=== PATIENT | male | born 1980 | race Caucasian/White ===

== ENCOUNTER 2016-11-24 14:56 | Emergency (ER) | payer BC, OTHER ==
[2016-11-24 15:26] VITALS: BP 107/59
--- NOTE | 2016-11-24 15:42 | UC ---
Skin Complaint HPI - HPI Summary HPI Summary: 36 year old male with complaints of tingling, burning red flushed face, ears and arms 15 minutes after taking niacin. He has been feeling "under the weather " with his depression. He is not taking any medication, does have a history of depression. He denies any thoughts of harming himself or others. Thought he would try an over the counter remedy to help with his depression so is trying niacin. He believes he took a 500 mg dose. He denies chest pain or difficulty breathing - History of Current Complaint Chief Complaint: UCAllergicReaction Time Seen by Provider: 11/24/16 15:19 Stated Complaint: RASH OR HIVES,ALLERGY Hx Obtained From: Patient Onset/Duration: Sudden Onset, Lasting Hours - 2, Still Present Timing: Constant Onset Severity: Mild Current Severity: Mild Location: Diffuse Character: Redness Aggravating: Nothing Alleviating: Nothing Associated Signs & Symptoms: Positive: Rash. Negative: Nausea, Vomiting, Numbness, Thirst, Diaphoresis, Weakness, Shivering, Difficulty Breathing, Fever , Chills, Cough, Wheezing, Throat Tightening, Lightheadedness, Drainage, Bruising, Tenderness, Red Streaks - Allergy/Home Medications Allergies/Adverse Reactions: Allergies Allergy/AdvReac Type Severity Reaction Status Date / Time Amoxicillin Allergy Mild Swelling Verified 11/24/16 15:20 Of Face,Lips,& Throat Home Medications: Home Medications NK [No Home Medications Reported] 11/24/16 [History Confirmed 11/24/16] Review of Systems Constitutional: Negative Skin: Rash - which is a burning, tingling sensation in the face and chest, and red or flushed skin. Eyes: Negative ENT: Negative Respiratory: Negative Cardiovascular: Negative Gastrointestinal: Negative Genitourinary: Negative Motor: Negative Neurovascular: Negative Musculoskeletal: Negative Neurological: Negative Psychological: Negative All Other Systems Reviewed And Are Negative: Yes PMH/Surg Hx/FS Hx/Imm Hx Previously Healthy: Yes Endocrine History Of: Denies: Diabetes, Thyroid Disease Cardiovascular History Of: Denies: Cardiac Disorders, Hypertension Respiratory History Of: Denies: COPD, Asthma GI/ History Of: Denies: Ulcer Psychological History Of: Reports: Depression - Surgical History Surgical History: None - Family History Known Family History: Negative: Hypertension, Diabetes - Social History Occupation: Employed Full-time Alcohol Use: Rare Substance Use Type: None Smoking Status (MU): Never Smoked Tobacco Physical Exam Triage Information Reviewed: Yes Appearance: No Pain Distress, Well-Nourished, Ill-Appearing - mildly Vital Signs: Initial Vital Signs Temp 97.6 F 11/24/16 15:21 Pulse 63 11/24/16 15:21 Resp 16 11/24/16 15:21 BP 107/59 11/24/16 15:21 Pulse Ox 100 11/24/16 15:21 Vital Signs Reviewed: Yes Eyes: Positive: Conjunctiva Clear. Negative: Discharge ENT: Positive: Pharynx normal. Negative: Nasal congestion Neck: Positive: Supple, Nontender, No Lymphadenopathy Respiratory: Positive: Lungs clear, Normal breath sounds, No respiratory distress Cardiovascular: Positive: RRR, No Murmur Musculoskeletal: Positive: Strength Intact, ROM Intact, No Edema Neurological: Positive: Alert, Muscle Tone Normal Psychological: Positive: Age Appropriate Behavior - pleasant and cooperative Skin: Negative: rashes, breakdown Course/Dx - Course Course Of Treatment: Education about No-Flush Niacin - Diagnoses Provider Diagnoses: Niacin Flushing Discharge - Discharge Plan Condition: Stable Disposition: HOME Patient Education Materials: Niacin (By mouth) Referrals: [facility] [place] [facility] [Outside] Non Staff,Doctor [Primary Care Provider] - As Soon As Possible (to become established with a primary doctor) Additional Instructions: Avoid taking further Niacin until your symptoms have completely resolved. On some occasions taking an aspirin 30 minutes prior to taking the niacin can reduce the flushing There is also No-Flush niacin brands available
== END 2016-11-24 15:54 | disposition home or self-care (01) ==
LOC: UCEAST 14:56
DX: R23.2 Flushing (principal); Z88.0 Allergy status to penicillin
CPT/HCPCS: 99211; G0463